=== PATIENT | male | born 1975 | race African-American/Black ===

== ENCOUNTER 2021-06-21 08:42 | Emergency (ER) | payer OTHER ==
[~2021-06-21] VITALS: Ht 172.7 cm; Wt 99.8 kg
[~2021-06-21 08:42] MED LIST: CIPROFLOXACIN500 M1 PO; FLEXERIL; FLEXERIL PO; LISINOPRIL40 MG PO; PRILOSEC40 MG PO; ZOFRAN ODT4 MG PO
[2021-06-21] MEDS ORDERED: DEXILANT60 MG PO (09:11)
[2021-06-21] MEDS ORDERED: COZAAR 50 MG TA50 M1 PO (09:11)
[2021-06-21 11:46] LABS: URINE BILIRUBIN NEGATIVE (Negative); URINE BLOOD NEGATIVE (Negative); URINE CLARITY CLEAR; URINE COLOR YELLOW; URINE GLUCOSE-RANDOM NEGATIVE (Negative); URINE KETONES NEGATIVE (Negative); URINE LEUKOCYTES-REFLEX NEGATIVE (Negative); URINE NITRITE-REFLEX NEGATIVE (Negative); URINE PROTEIN NEGATIVE (Negative); URINE SPECIFIC GRAVITY >= 1.030 (1.005-1.030); URINE UROBILINOGEN 0.2 E.U./dl (0.2-1.0)
[2021-06-21 12:35] LABS: ABSOLUTE BASOPHILS 0.1 thou/uL (0.0-0.2); ABSOLUTE EOSINOPHILS 0.1 thou/uL (0.0-0.7); ABSOLUTE LYMPHOCYTES 1.5 thou/uL (0.8-5.3); ABSOLUTE MONOCYTES 0.4 thou/uL (0.0-1.2); ABSOLUTE NEUTROPHILS 2.3 thou/uL (1.6-8.1); BASOPHILS 1.5 %; EOSINOPHILS 1.3 %; HEMATOCRIT 47.7 % (42.0-52.0); HEMOGLOBIN 15.6 gm/dL (14.0-18.0); MCH 24.8 pg (26.0-34.0); MCHC 32.7 g/dL (28.0-37.0); MONOCYTES 9.3 %; MPV 7.6 fl. (7.2-11.1); NUCLEATED RBCS 0 /100WBC; PLATELET COUNT* 204 thou/uL (150-400); POLYS 52.9 %; RBC 6.28 mil/uL (4.50-6.00); RDW-CV 15.5 % (10.5-14.5); WBC 4.3 thou/uL (4.0-11.0)
[2021-06-21 12:48] LABS: CALCIUM 8.8 mg/dL (8.5-10.1); CREATININE 1.1 mg/dL (0.6-1.3); POTASSIUM 4.6 mmol/L (3.5-5.1)
[2021-06-21 12:52] LABS: ALBUMIN 4.1 g/dL (3.4-5.0); TOTAL BILIRUBIN 0.7 mg/dL (<0.1-1.0); TOTAL PROTEIN 8.2 g/dL (6.4-8.2)
--- NOTE | 2021-06-21 13:19 | EKG ---
[place] [address] ELECTROCARDIOGRAM REPORT Name: BENSON JUNG [id number] Admission: 06/21/21 Attend Phys: Discharge: Date of : 71 Date of Service: 06/21/21 1237 Report #: [id number] THIS REPORT FOR: //name// [facility] ED Test Date: 2021-06-21 Test Time: 12:37:02 Pat Name: BENSON JUNG Department: Room: Gender: Compensation Vice President: [facility] : 1975 Requested By: Krystyna Luis Order Number: [id number] MD: Miquel Allen Measurements Intervals [place] Rate: 66 P: -2 VT: 164 QRS: -18 QRSD: 100 T: 14 QT: 397 QTc: 416 Interpretive Statements Sinus rhythm Borderline left axis deviation Abnormal R-wave progression, late transition Baseline wander in lead(s) V1 Compared to ECG 01/24/2017 02:40:44 Sinus bradycardia no longer present Electronically Signed On 06-21-2021 13:18:51 [employer] SERVICE [employer]ENT by Miquel Allen [email or web address] <ELECTRONICALLY SIGNED> By: Miquel Allen MD, [facility] 06/21/21 1318 1237 1237 Miquel Allen MD, [facility] /EPI
[2021-06-21] MEDS ORDERED: ZOFRAN ODT4 MG PO (14:29)
[2021-06-21] MEDS ORDERED: FLEXERIL PO (14:29)
[2021-06-21] MEDS ORDERED: NORCO5 PO (14:43)
[2021-06-21 14:45] VITALS: BP 150/101
== END 2021-06-21 14:46 | disposition home or self-care (01) ==
LOC: M.ERS 08:42
PROVIDERS: Nurse Practitioner Family
DX: R10.11 Right upper quadrant pain (principal); K21.9 Gastro-esophageal reflux disease without esophagitis; I10 Essential (primary) hypertension; Z79.899 Other long term (current) drug therapy; Z88.6 Allergy status to analgesic agent